=== PATIENT | female | born 1985 | race American Indian/Alaskan Native ===

== ENCOUNTER 2016-09-30 16:17 | Outpatient (CLI) | payer MEDICAID ==
[2016-09-30 17:19] VITALS: BP 131/77
== END 2016-09-30 17:32 | disposition home or self-care (01) ==
LOC: TRG 16:17
PROVIDERS: ATTEND Obstetrics & Gynecology
DX: Z34.93 Encounter for supervision of normal pregnancy, unspecified, third trimester (principal); Z3A.38 38 weeks gestation of pregnancy
CPT/HCPCS: 59025

== ENCOUNTER 2016-10-01 04:17 | Inpatient (IN) | payer MEDICAID ==
[2016-10-01] MEDS ORDERED: LACTATED RINGERS 1,000 ML ONE (04:29)
[2016-10-01] MEDS ORDERED: PITOCin/NS 20 UNIT/1000ML DRIP 20,000 MILLIUNITS/1,000 ML BAG IV ONE (04:34)
[2016-10-01] MEDS ORDERED: NARCAN 0.4 MG/1 ML IV PRN (05:17)
[2016-10-01] MEDS ORDERED: SUBLIMAZE IV PRN (05:17)
[2016-10-01] MEDS ORDERED: MINERAL OIL PO PRN (05:17)
[2016-10-01] MEDS ORDERED: STADOL IV PRN (05:17)
[2016-10-01] MEDS ORDERED: XYLOCAINE 2% INFILTRATI ONE (05:17)
[2016-10-01] MEDS ORDERED: ZOFRAN IV PRN ×2 (05:17→09:00)
[2016-10-01] MEDS ORDERED: BRETHINE IVP PRN (05:17)
[2016-10-01] MEDS ORDERED: ePHEDrine SULFATE IV PRN (05:17)
[2016-10-01] MEDS ORDERED: BRETHINE SUB-Q PRN (05:17)
[2016-10-01] MEDS ORDERED: PHENERGAN PO PRN ×2 (05:17→09:00)
[2016-10-01] MEDS ORDERED: SUBLIMAZE ONE (05:18)
--- NOTE | 2016-10-01 05:21 | History and Physical Report ---
History of Present Illness Date of examination: 10/01/16 Date of admission: 10/01/16 04:17 Chief complaint: Labor History of present illness: Pt is a 30yo BF EDC 10/10/16; EGA 38 5/7 weeks presents to L&D complaining of RUC's q 3-4 mins. She received 1 visit at [facility] , and course has been unremarkable. records are not available. Past History Past Medical History: no pertinent history Past Surgical History: no surgical history Family/Genetic History: none Social history: no significant social history, single - Obstetrical History Expected Date of Delivery: 10/10/16 Actual Gestation: 38 Week(s) 5 Day(s) : 5 Medications and Allergies Allergies Allergy/AdvReac Type Severity Reaction Status Date / Time Penicillins Allergy Rash Verified 09/30/16 16:39 Active Meds: Active Medications Lactated Ringer's (Lactated Ringers) 1,000 mls @ 125 mls/hr IV DIRECT TOY Review of Systems All systems: negative - Vital Signs Vital signs: Vital Signs Pulse BP 63 140/90 10/01/16 04:25 10/01/16 04:25 Temp Pulse Resp BP Pulse Ox 63 140/90 10/01/16 04:25 10/01/16 04:25 - Physical Exam Breasts: Positive: deferred Cardiovascular: Regular rate Lungs: Positive: Clear to auscultation Abdomen: Positive: normal appearance, soft Genitourinary (Female): Positive: normal external genitalia Vagina: Positive: normal moisture Uterus: Positive: enlarged Extremities: Positive: normal - Obstetrical FHR: category 1 Uterine Contraction Monitor Mode: External Cervical Dilatation: 5 Cervical Effacement Percentage: 80 station: -2 Uterine Contraction Pattern: Regular Uterine Tone Measurement Phase: Contraction Uterine Contraction Intensity: Moderate Results Result Diagrams: 10/01/16 05:00 All other labs normal. Assessment and Plan - Patient Problems (1) 38 weeks gestation of Onset Date: 10/01/16 Current Visit: Yes Status: Acute Plan to address problem: A: IUP @ 38 5/7 weeks in labor Limited care Unknown GBS P: Admit to L&D for expectant vaginal delivery IV Clindamycin (2) Limited care in third trimester Onset Date: 10/01/16 Current Visit: Yes Status: Acute
[2016-10-01 05:22] LABS: Hematocrit 31.1 % (30.3-42.9); Hemoglobin 9.8 gm/dl (10.1-14.3); Mean Corpuscular HGB Conc 32 % (30-34); Mean Corpuscular Volume 78 fl (79-97); Platelet Count 269 K/mm3 (140-440); Red Blood Count 3.99 M/mm3 (3.65-5.03); Red Cell Distribution Width 16.7 % (13.2-15.2)
[2016-10-01 05:29] LABS: Mean Corpuscular Hemoglobin 25 pg (28-32)
[2016-10-01] MEDS ORDERED: CLEOCIN 900 MG/50 mL 900 MG/50 ML BAG IV SCH (06:00)
[2016-10-01] MEDS ORDERED: PITOCin/NS 30 UNIT/500ML 30 UNITS/500 ML BAG IV SCH ×2 (06:00)
[2016-10-01] MEDS ORDERED: PITOCin/NS 20 UNIT/1000ML DRIP 20 UNITS/1,000 ML BAG IV SCH ×2 (06:00→09:00)
[2016-10-01] MEDS ORDERED: LACTATED RINGERS 1,000 ML IV SCH ×2 (06:00)
--- NOTE | 2016-10-01 08:00 | Procedure Note ---
OB Delivery Note - Delivery Date of Delivery: 10/01/16 Surgeon: DUANE SOSA Estimated blood loss: <100cc - Vaginal Delivery presentation: vertex Delivery position: OA Intrapartum events: no care Delivery induction: none Delivery augmentation: rupture of membranes Delivery monitor: external FHT, external uterine Route of delivery: Delivery placenta: spontaneous Delivery cord: nuchal cord (x1), 3 umbilical vessels Episiotomy: none Delivery laceration: none Delivery repair: vicryl Anesthesia: intravenous Delivery comments: Infant delivered OA over intact perineum with narcotic anesthesia and delayed cord clamping and [id number] bonding - A at 1 minute: 8 at 5 minutes: 9 Infant Gender: Female ([id number])
[2016-10-01] MEDS ORDERED: TYLENOL PO PRN (09:00)
[2016-10-01] MEDS ORDERED: PHENERGAN PR PRN (09:00)
[2016-10-01] MEDS ORDERED: BENADRYL PO PRN (09:00)
[2016-10-01] MEDS ORDERED: NORCO 5/325 PO PRN (09:00)
[2016-10-01] MEDS ORDERED: SODIUM CHLORIDE FLUSH SYRINGE 10 ML IV PRN (09:00)
[2016-10-01] MEDS ORDERED: TUCKS PAD TP PRN (09:00)
[2016-10-01] MEDS ORDERED: LANSINOH TP PRN (10:00)
[2016-10-01] MEDS ORDERED: DULCOLAX PR PRN (10:00)
[2016-10-01 11:35] LABS: HIV-1 Antigen p24 Non React (Non React); HIVR-1/2 Ab Non React (Non React)
[2016-10-01] MEDS: FEOSOL PO SCH ×2 (12:00→21:26)
[2016-10-01] MEDS: MOTRIN PO SCH ×3 (12:00→23:54)
[2016-10-01] MEDS: COLACE PO SCH ×2 (12:00→21:26)
[2016-10-01] MEDS: PRENATAL VITAMIN PO SCH (12:00)
[2016-10-01 21:02] LABS: Hematocrit 28.1 % (30.3-42.9); Hemoglobin 8.9 gm/dl (10.1-14.3)
[2016-10-01] MEDS ORDERED: MILK OF MAGNESIA PO PRN (22:00)
[2016-10-02] MEDS: MOTRIN PO SCH ×4 (05:43→23:55)
[2016-10-02] MEDS ORDERED: BOOSTRIX IM ONE (06:00)
--- NOTE | 2016-10-02 09:01 | Progress Note ---
Assessment and Plan - Patient Problems (1) 38 weeks gestation of Onset Date: 10/01/16 Current Visit: Yes Status: Resolved (2) Limited care in third trimester Onset Date: 10/01/16 Current Visit: Yes Status: Resolved (3) (normal spontaneous vaginal delivery) Onset Date: 10/02/16 Current Visit: Yes Status: Acute Plan to address problem: A: S/P - PPD #1 Doing well Asymptomatic anemia - stable P: May go home tomorrow. Subjective - Subjective Date of service: 10/02/16 Principal diagnosis: s/p - PPD #1 Interval history: Pt is feeling well without complaints. Bleeding improved. Patient reports: appetite normal, voiding normally, flatus, ambulating normally : doing well, bottle feeding Objective - Vital Signs Latest vital signs: Vital Signs Temp Pulse Resp BP 10/02/16 04:31 99.2 F 72 20 133/74 10/02/16 01:12 98.3 F 60 20 139/83 10/01/16 21:40 99.2 F 72 20 133/74 10/01/16 18:30 18 10/01/16 16:40 98.7 F 76 20 134/70 10/01/16 12:00 98.3 F 62 20 113/67 10/01/16 09:50 98.1 F 65 20 119/73 Intake and Output 10/01/16 10/02/16 10/02/16 22:59 06:59 14:59 Intake Total 240 360 Output Total 600 Balance 240 -240 Intake: Oral 240 Intake, Free Water 360 Output: Urine 600 Void 600 Other: Total, Intake Amount 240 Total, Output Amount 600 Voiding Method Toilet - Exam Breasts: Present: deferred Cardiovascular: Present: Regular rate Lungs: Present: Clear to auscultation Abdomen: Present: normal appearance, soft Uterus: Present: normal, firm, fundal height below umbilicus Extremities: Present: normal - Labs Labs: Abnormal lab results 10/01/16 Range/Units 20:24 Hgb 8.9 L (10.1-14.3) gm/dl Hct 28.1 L (30.3-42.9) % Laboratory Tests 10/01/16 10/01/16 10/01/16 05:00 05:00 10:48 WBC 11.0 RBC 3.99 Hgb 9.8 L Hct 31.1 MCV 78 L MCH 25 L MCHC 32 RDW 16.7 H Plt Count 269 RPR Hep Bs Antigen HIV 1&2 Antibody Rapid HIV P24 Antigen Rubella IgG Antibody Immune Blood Type A POSITIVE Antibody Screen Negative 10/01/16 10/01/16 10/01/16 10:48 10:48 10:48 WBC RBC Hgb Hct MCV MCH MCHC RDW Plt Count RPR Nonreactive Hep Bs Antigen Non-reactive HIV 1&2 Antibody Rapid Non react HIV P24 Antigen Non react Rubella IgG Antibody Blood Type Antibody Screen 10/01/16 20:24 WBC RBC Hgb 8.9 L Hct 28.1 L MCV MCH MCHC RDW Plt Count RPR Hep Bs Antigen HIV 1&2 Antibody Rapid HIV P24 Antigen Rubella IgG Antibody Blood Type Antibody Screen
[2016-10-02] MEDS: COLACE PO SCH ×2 (10:33→23:54)
[2016-10-02] MEDS: FEOSOL PO SCH ×2 (10:33→23:54)
[2016-10-02] MEDS: PRENATAL VITAMIN PO SCH (10:33)
--- NOTE | 2016-10-02 10:50 | Discharge Summary ---
Providers - Providers Date of Admission: 10/01/16 04:17 Date of discharge: 10/03/16 Attending physician: DUANE SOSA Primary care physician: DUANE SOSA Hospitalization Reason for admission: active labor, IUP at term Delivery: Episiotomy: none Laceration: none Other procedures: none complications: none Discharge diagnosis: IUP at term delivered [place] baby: female Hospital course: Unremarkable. Condition at discharge: Good Disposition: DC-01 TO HOME OR SELFCARE - Discharge Diagnoses (1) 38 weeks gestation of Status: Resolved (2) Limited care in third trimester Status: Resolved (3) (normal spontaneous vaginal delivery) Status: Resolved Plan - Discharge Medications Prescriptions: Ferrous Sulfate [Feosol 325 MG tab] 325 mg PO BID #60 tablet Ibuprofen [Motrin 600 MG tab] 600 mg PO Q6H #30 tablet Vit-Fe Fumar-FA [ Vitamin] 1 each PO QDAY #30 tablet - Provider Discharge Summary Activity: routine, no sex for 6 weeks, no heavy lifting 4 weeks, no strenuous exercise Diet: routine Instructions: routine Additional instructions: [] Smoking cessation referral if applicable(refer to patient education folder for contact #) [] Refer to [facility] Booklet Call your doctor immediately for: * Fever > 100.5 * Heavy vaginal bleeding ( >1 pad per hour) * Severe persistent headache * Shortness of breath * Reddened, hot, painful area to leg or breast * Drainage or odor from incision. * Keep incision clean and dry at all times and follow doctor's instructions regarding bathing/showering - Follow up plan Follow up: DUANE SOSA MD [Primary Care Provider] - 6 Weeks
[2016-10-02] MEDS ORDERED: M-M-R II VACCINE SUB-Q ONE (11:00)
[2016-10-03] MEDS: MOTRIN PO SCH (05:52)
[2016-10-03 08:43] VITALS: BP 145/83
[2016-10-03] MEDS: COLACE PO SCH (12:20)
[2016-10-03] MEDS: FEOSOL PO SCH (12:21)
[2016-10-03] MEDS: PRENATAL VITAMIN PO SCH (12:21)
== END 2016-10-03 14:04 | disposition home or self-care (01) | DRG 775 ==
LOC: LD 04:17 → OB 09:53
PROVIDERS: ADMIT Obstetrics & Gynecology; ATTEND Obstetrics & Gynecology
PROC: 10E0XZZ Delivery of Products of Conception, External Approach (ICD-10-PCS; principal; 2016-10-01)
DX: O69.81X0 Labor and delivery complicated by cord around neck, without compression, not applicable or unspecified (principal); Z3A.38 38 weeks gestation of pregnancy; Z37.0 Single live birth; O90.81 Anemia of the puerperium; D64.9 Anemia, unspecified
CPT/HCPCS: 36415; 85014; 85018; 85027; 86592; 86706; 86762; 86850; 86900; 86901; 87806; 99211; G0463; J2590; J3010; J7120